=== PATIENT | female | born 1965 | race Asian ===

== ENCOUNTER 2024-05-24 09:22 | Day surgery (SDC) | payer OTHER ==
[2024-05-21 10:02] LABS: Basophils # (auto) 0.1 10 ^3/uL (0-0.2); Basophils % (auto) 1.2 % (0.0-2.0); Eosinophils # (auto) 0.2 10 ^3/uL (0-0.8); Eosinophils % (auto) 3.4 % (0.0-7.0); Hematocrit 39.7 % (36.0-46.0); Hemoglobin 13.3 g/dL (12.2-16.2); Lymphocytes # (auto) 1.7 10 ^3/uL (0.4-5.4); Lymphocytes % (auto) 37.3 % (10.0-50.0); Mean Corpuscular Hemoglobin 28.3 pg (28.0-32.0); Mean Corpuscular Hgb Conc. 33.5 g/dL (32.0-36.0); Mean Corpuscular Volume 84.5 fL (80.0-100.0); Monocytes # (auto) 0.4 10 ^3/uL (0-1.3); Monocytes % (auto) 9.8 % (0.0-12.0); Neutrophils # (auto) 2.2 10 ^3/uL (1.6-8.6); Neutrophils % (auto) 48.3 % (37.0-80.0); Nucleated Red Blood Cells % 0.1 %; Platelet Count (auto) 182 10^3/uL (140-450); Red Cell Distribution Width 12.7 % (11.8-14.3); White Blood Cell 4.5 10^3/uL (4.4-10.8)
[2024-05-21 10:24] LABS: Partial Thromboplastin Time 27.8 SEC (24.5-34.5); Prothrombin Time 10.6 sec (9.3-11.8)
[2024-05-21 10:50] LABS: Alanine Aminotransferase 31 U/L (7-40); Alkaline Phosphatase 83 U/L (46-116); Anion Gap 7 (5-15); Aspartate Aminotransferase 17 U/L (13-40); BUN/Creatinine Ratio 17.2 (10.0-20.0); Blood Urea Nitrogen 10 mg/dL (9-23); Calcium 9.6 mg/dL (8.7-10.4); Carbon Dioxide 28 mmol/L (20-31); Glucose 87 mg/dL (74-106); Potassium 4.2 mmol/L (3.5-5.1); Sodium 143 mmol/L (136-145); Total Protein 7.5 g/dL (5.7-8.2); Urine Bacteria FEW /hpf (None Seen); Urine Blood Negative /uL (Negative); Urine Budding Yeast OCCASIONAL /hpf (None Seen); Urine Clarity Turbid (Clear); Urine Color Light-Yellow (Yellow); Urine Protein, UAD Negative (Negative); Urine Specific Gravity 1.013 (1.001-1.035); Urine Squamous Epithelial Cell FEW /hpf (<5); Urine Urobilinogen Normal (Negative); Urine WBC 17 /HPF (0-5)
[2024-05-21 10:51] LABS: Bilirubin, Total 0.7 mg/dL (0.2-1.0)
[2024-05-21 10:56] LABS: Albumin 4.9 g/dL (3.2-4.8); Chloride 108 mmol/L (98-107)
[~2024-05-24] VITALS: Ht 160 cm; Wt 65.3 kg
[~2024-05-24 09:22] MED LIST: CETI-195 PO; CLOP75TA70 PO; GABA-1308 PO; LEVO25TA6 PO; METF-370 PO; ROSU5TAB5 PO
[2024-05-24] MEDS ORDERED: LIDOCAINE 2% (LOCAL ANESTH.) PF 5ml SDV ONE (11:15)
[2024-05-24] MEDS ORDERED: PROPOFOL 10 MG/ML 20 ML IV ONE (11:15)
[2024-05-24 11:36] VITALS: PULSE 82; RESP 14; TEMP 97; O2SAT 100
--- NOTE | 2024-05-24 11:52 | DVHOP2 ---
Operative Report DATE OF OPERATION: 05/24/24 PROCEDURE: Colonoscopy with cold biopsy. PREOPERATIVE INDICATION: The patient is a 58 -year-old female undergoing colonoscopy for colon cancer screening POSTOPERATIVE DIAGNOSES: 1. Mild scattered diverticular disease more prominent in the sigmoid 2. There were two diminutive benign-appearing hyperplastic type rectal polyps were seen and removed by cold biopsy forceps 3. 1+ internal hemorrhoids otherwise complete and normal colonoscopy examination up to the cecum and terminal ileum PROCEDURE PERFORMED BY: Rosa Isela Miller M.D. SCOPE: Olympus videocolonoscope. ASA CLASS: 3 PREOPERATIVE MEDICATIONS: Mac sedation PROCEDURE IN DETAIL: After obtaining an informed consent, the patient was placed on left lateral decubitus position. She was then sedated with the above medications. A rectal examination was performed that was normal. The colonoscope was then passed through the anus into the rectosigmoid and through the descending, transverse, and ascending colon up to the cecum with visualization of the appendiceal orifice, base of the cecum and the ileocecal valve. The colonoscope was then withdrawn. The distal 5 cm of the terminal ileum were normal No masses or colitis was noted. Patient had mild scattered diverticular disease. This was more prominent in the sigmoid. On retroflexion and straight on view she had trace to 1+ internal hemorrhoids In the rectum there were two diminutive hyperplastic type benign-appearing polyps that were removed by cold biopsy forceps The patient tolerated the procedure well without difficulty. WITHDRAWAL TIME: 8 minutes QUALITY OF THE PREP: [place] Bowel Prep score: 9. COMPLICATIONS : None SPECIMENS: Rectal polyps DISPOSITION: Stable D/C to home PLAN: 1. Repeat colonoscopy base on biopsy result likely in 5-7 years 2. Resume GI soft diet advance as tolerated 3. Increase fluid and fiber intake 4. Local anorectal hemorrhoidal care 5. Outpatient follow up with me in 4-6 weeks to review results and discuss further management ROSA ISELA MILLER MD May 24, 2024 11:52
[2024-05-24 12:06] VITALS: BP 118/66; PULSE 83; RESP 12; O2SAT 100
== END 2024-05-24 12:16 | disposition home or self-care (01) ==
LOC: GI 09:22
PROVIDERS: ATTEND Internal Medicine Gastroenterology
DX: Z12.11 Encounter for screening for malignant neoplasm of colon (principal); K62.1 Rectal polyp; K57.30 Diverticulosis of large intestine without perforation or abscess without bleeding; K64.8 Other hemorrhoids; I25.10 Atherosclerotic heart disease of native coronary artery without angina pectoris; E11.9 Type 2 diabetes mellitus without complications; E78.00 Pure hypercholesterolemia, unspecified; I25.2 Old myocardial infarction; Z90.710 Acquired absence of both cervix and uterus; Z88.0 Allergy status to penicillin; Z88.6 Allergy status to analgesic agent; Z88.8 Allergy status to other drugs, medicaments and biological substances; Z79.01 Long term (current) use of anticoagulants; Z79.890 Hormone replacement therapy; Z87.891 Personal history of nicotine dependence
CPT/HCPCS: 36415; 45380; 80053; 81001; 82962; 85025; 85610; 85730; 88305; J2003; J2704; J7030